=== PATIENT | female | born 1960 | race Caucasian/White ===

== ENCOUNTER → 2016-09-11 | Outpatient (CLI) | payer BC, OTHER ==
[~2016-09-11] MED LIST: CALCTAB28 PO; IBUP200T2 PO; IBUP600T26 PO; IRONTAB3 PO; MULTTAB4 PO; NYAM10003 EXT; SUDATAB15 PO; VICO5TAB PO
--- NOTE | 2016-09-11 12:21 | REPMRS ---
Patient History The patient states she had a clinical breast exam in 09/11 Patient is postmenopausal. Family history of prostate cancer in father at age 50 or over and breast cancer in mother at age 50 or over. Benign excisional biopsy of the left breast, 1985. Taking estrogen for 2 years 1 month. Digital Woman Screen Mammo: September 11, 2016 - Exam #: [id number] Bilateral CC and MLO view(s) were taken. Technologist: Miladys Mason, Technologist Prior study comparison: September 07, 2015, digital woman screen mammo performed at [facility]. August 23, 2014, digital woman screen mammo performed at [facility]. August 18, 2013, digital woman screen mammo performed at [facility]. FINDINGS: There are scattered fibroglandular densities. There is a moderate amount of residual fibroglandular tissue which is fairly symmetric. There is no interval development of dominant mass, architectural distortion, or clustered microcalcification typical of malignancy. There has been no change in the appearance of the mammogram from the prior studies. ASSESSMENT: BI-RADS/ACR category 1 mammogram. Negative. Recommendation Routine screening mammogram of both breasts in 1 year (for women over age 40). This mammogram was interpreted with the aid of an FDA-approved computer-aided dectection system. Electronically Signed By: John Fabian MD 09/11/16 [id number]
== END ==
LOC: M WHC 11:23
PROVIDERS: ATTEND Nurse Practitioner Family
DX: Z12.31 Encounter for screening mammogram for malignant neoplasm of breast (principal)

== ENCOUNTER → 2017-01-28 | Outpatient (REF) | payer OTHER ==
[2017-01-28 11:46] LABS: ALBUMIN 3.6 GM/DL (3.2-5.2); ALBUMIN/GLOBULIN RATIO 1.06 (1.00-1.93); ALKALINE PHOSPHATASE 53 U/L (45-117); ALT/SGPT 22 U/L (12-78); ANION GAP 4 MEQ/L (8-16); AST/SGOT 15 U/L (15-37); BILIRUBIN,TOTAL 0.6 MG/DL (0.2-1.0); BLOOD UREA NITROGEN 22 MG/DL (7-18); CALCIUM LEVEL 8.9 MG/DL (8.5-10.1); CARBON DIOXIDE LEVEL 32 MEQ/L (21-32); CHLORIDE LEVEL 105 MEQ/L (98-107); CHOLESTEROL LEVEL 194 MG/DL (<200); CREATININE FOR GFR 0.88 MG/DL (0.55-1.02); GLOMERULAR FILTRATION RATE > 60.0 (>51); GLUCOSE, FASTING 78 MG/DL (70-105); POTASSIUM SERUM 4.1 MEQ/L (3.5-5.1); SODIUM LEVEL 141 MEQ/L (136-145); TRIGLYCERIDES LEVEL 56 MG/DL (<150)
== END ==
LOC: M SFHCPLAZ 08:07
PROVIDERS: ATTEND Nurse Practitioner Family
DX: I10 Essential (primary) hypertension (principal); E78.00 Pure hypercholesterolemia, unspecified; E55.9 Vitamin D deficiency, unspecified

== ENCOUNTER 2017-06-05 11:10 | Day surgery (SDC) | payer BC, OTHER ==
[~2017-06-05] VITALS: Ht 160 cm; Wt 57.6 kg
[~2017-06-05 11:10] MED LIST changes: +ACETAMINOPHEN 325 MG TAB PO PRN; +BSS with VANC/TOB/EPI for EYE CASES IR ONE; +CYCLOPENTOLATE 2% OPHTH SOLN 2ML BTL OD ONE; +ESTR1CRE TOP; +FISH1000 PO; +LIDOCAINE 3.5 % 1ML OPHTH TOPICAL GEL OU ONE; +MIDAZOLAM INJ 2 MG/2 ML VIAL (J2250) As Ordered ONE; +MULT1CHW39 PO; +OFLOXACIN 0.3 % (OCUFLOX) OPTH SOL 5ML OD ONE; +PHENYLEPHRINE 2.5% OPHTH SOL 2ML OD ONE; +PROPARACAINE 0.5% OPHTH SOL 15ML OD PRN; +TROPICAMIDE 1% OPHTH SOLN 2ML OD ONE; +fentaNYL 100 MCG/2 ML INJECTION (J3010) As Ordered ONE
[2017-06-05] MEDS ORDERED: LR 500 ML IV ONE (11:30)
[2017-06-05] MEDS ORDERED: LIDOCAINE 1% MDV 20ML VIAL SC ONE (11:30)
[2017-06-05] MEDS ORDERED: TRIAMCINOLONE PRES FR 40 MG/ML 1ML(TRIESENCE)(OR EYE ONLY)(J3300 PER 1MG) As Ordered ONE (13:16)
[2017-06-05] MEDS ORDERED: HEALON DUET (HEALON 10MG/ML 0.55ML & HEALON ENDOCOAT 30MG/ML 0.85ML) As Ordered ONE (13:16)
[2017-06-05] MEDS ORDERED: LIDOCAINE 1% SDV 5 ML VIAL As Ordered ONE (13:16)
[2017-06-05] MEDS ORDERED: MOXIFLOXACIN IN BSS 0.25MG/0.25ML INTRACAMERAL INJ (OR EYE ONLY)(J2280) As Ordered ONE (13:16)
[2017-06-05] MEDS ORDERED: POVIDONE-IODINE 5% OPHTH PREP SOL 30ML As Ordered ONE (13:16)
[2017-06-05] MEDS ORDERED: AcetaZOLAMIDE 500 MG ER CAP As Ordered ONE (14:05)
[2017-06-05 14:10] VITALS: BP 115/74
[2017-06-05] MEDS ORDERED: TRIMETHOBENZAMIDE 300 MG CAP PO PRN (14:30)
[2017-06-05] MEDS ORDERED: AcetaZOLAMIDE 500 MG ER CAP PO ONE (14:30)
[2017-06-05] MEDS ORDERED: KETOROLAC 0.5% OPHTH SOLN OD ONE (14:30)
--- NOTE | 2017-06-05 23:05 | RO ---
DATE OF PROCEDURE: 06/05/2017 PREPROCEDURE DIAGNOSIS: Cataract of right eye. POSTPROCEDURE DIAGNOSIS: Cataract of right eye. PROCEDURE: Femtosecond laser and phacoemulsification of the intraocular lens with lens implantation of right eye. Intraocular lens used was Hoya, Model 250, power 18.5 diopter. SURGEON: Myah Bradshaw MD OPERATIONS ANALYST: None. ANESTHESIA: Local IV standby. FINDINGS: Cataract of right eye. COMPLICATIONS: None. DESCRIPTION OF PROCEDURE: The patient was brought to the operating room and laid in supine position. A lid speculum was placed, and patient was brought under the femtosecond laser. After the satisfactory placement of the patient interface, primary incision, secondary incision, and arcuate incisions with lens fragmentation was done without any complication per plan. The patients interface was then removed and lid speculum removed. Patient was placed under the microscope. The eye was prepped and draped in a sterile fashion for ophthalmic surgery. Lid speculum was placed. The secondary incision was opened, and EndoCoat was injected into the anterior chamber. The temporal clear corneal incision was then opened and capsulorrhexis removed, followed by hydrodissection. This was followed by phacoemulsification of the lens within the capsular bag. Cortical material was then aspirated, and Healon was injected into the capsular bag. Intraocular lens was then placed. Excess Healon was aspirated. Wound was hydrated. The lid speculum was removed, and patient was returned to the recovery room in stable condition.
[2017-06-27] MEDS ORDERED: VIAC8.5C PO (09:37)
== END 2017-06-05 14:30 | disposition home or self-care (01) ==
LOC: M SDC 11:10
PROVIDERS: ATTEND Ophthalmology
DX: H25.9 Unspecified age-related cataract (principal)
CPT/HCPCS: 66984; J2250; J2280; J3010; J3300

== ENCOUNTER → 2017-09-12 | Outpatient (CLI) | payer BC | LOC: M WHC 11:20 | DX: Z12.31 Encounter for screening mammogram for malignant neoplasm of breast (principal) | CPT/HCPCS: 77067 ==

== ENCOUNTER → 2017-11-25 | Outpatient (REF) | payer OTHER, BC ==
[2017-11-25 11:31] LABS: BASO % 0.5 % (0.0-1.0); EOS # 0.1 10^3/uL (0.0-0.50); HEMATOCRIT 36.8 % (36.0-47.0); HEMOGLOBIN 12.7 g/dl (12.0-15.5); IMMATURE GRANULOCYTE % 0.3 % (0-3.0); LYMPH # 1.6 10^3/uL (1.5-4.5); MEAN CORPUSCULAR HEMOGLOBIN 31.2 pg (27.0-33.0); MEAN CORPUSCULAR HGB CONC 34.5 g/dl (32.0-36.5); MEAN CORPUSCULAR VOLUME 90.4 fl (80.0-96.0); MONO # 0.3 10^3/uL (0.0-0.8); MONO % 6.8 % (0.0-5.0); NEUTROPHILS % 50.4 % (36.0-66.0); PLATELET COUNT, AUTOMATED 250 10^3/uL (150-450); RED BLOOD COUNT 4.07 10^6/uL (4.00-5.40); RED CELL DISTRIBUTION WIDTH 11.7 % (11.5-14.5)
[2017-11-25 11:57] LABS: ALBUMIN 3.7 GM/DL (3.2-5.2); ALBUMIN/GLOBULIN RATIO 1.03 (1.00-1.93); ALKALINE PHOSPHATASE 59 U/L (45-117); ALT/SGPT 20 U/L (12-78); ANION GAP 6 MEQ/L (8-16); AST/SGOT 17 U/L (7-37); BILIRUBIN,DIRECT 0.1 MG/DL (0.0-0.2); BILIRUBIN,TOTAL 0.5 MG/DL (0.2-1.0); BLOOD UREA NITROGEN 16 MG/DL (7-18); CALCIUM LEVEL 8.8 MG/DL (8.5-10.1); CARBON DIOXIDE LEVEL 29 MEQ/L (21-32); CHLORIDE LEVEL 107 MEQ/L (98-107); GLOMERULAR FILTRATION RATE > 60.0 (>51); GLUCOSE, FASTING 110 MG/DL (70-100); PHOSPHORUS LEVEL 3.6 MG/DL (2.5-4.9); POTASSIUM SERUM 3.6 MEQ/L (3.5-5.1); SODIUM LEVEL 142 MEQ/L (136-145); TOTAL PROTEIN 7.3 GM/DL (6.4-8.2)
== END ==
LOC: M LABDRAW1 10:26
DX: M79.641 Pain in right hand (principal)

== ENCOUNTER → 2018-01-28 | Outpatient (REF) | payer OTHER ==
[2018-01-28 10:26] LABS: HEMATOCRIT 40.4 % (36.0-47.0); HEMOGLOBIN 13.7 g/dl (12.0-15.5); MEAN CORPUSCULAR HEMOGLOBIN 31.2 pg (27.0-33.0); MEAN CORPUSCULAR HGB CONC 33.9 g/dl (32.0-36.5); PLATELET COUNT, AUTOMATED 254 10^3/uL (150-450); RED BLOOD COUNT 4.39 10^6/uL (4.00-5.40); RED CELL DISTRIBUTION WIDTH 11.8 % (11.5-14.5); WHITE BLOOD COUNT 5.5 10^3/uL (4.0-10.0)
[2018-01-28 10:59] LABS: ALBUMIN 3.8 GM/DL (3.2-5.2); ALBUMIN/GLOBULIN RATIO 1.03 (1.00-1.93); ALKALINE PHOSPHATASE 60 U/L (45-117); ALT/SGPT 26 U/L (12-78); ANION GAP 6 MEQ/L (8-16); AST/SGOT 14 U/L (7-37); BILIRUBIN,TOTAL 0.4 MG/DL (0.2-1.0); BLOOD UREA NITROGEN 21 MG/DL (7-18); CARBON DIOXIDE LEVEL 30 MEQ/L (21-32); CHLORIDE LEVEL 107 MEQ/L (98-107); CHOLESTEROL LEVEL 205 MG/DL (<200); CHOLESTEROL RISK RATIO 2.887 (<5); CREATININE FOR GFR 0.92 MG/DL (0.55-1.30); GLOMERULAR FILTRATION RATE > 60.0 (>51); GLUCOSE, FASTING 85 MG/DL (70-100); HDL CHOLESTEROL 71 MG/DL (>40); LDL CHOLESTEROL 120.8 MG/DL (<100); NON-HDL-C 134 MG/DL; POTASSIUM SERUM 4.7 MEQ/L (3.5-5.1); SODIUM LEVEL 143 MEQ/L (136-145); TOTAL PROTEIN 7.5 GM/DL (6.4-8.2); TRIGLYCERIDES LEVEL 66 MG/DL (<150)
== END ==
LOC: M SFHCPLAZ 08:02
DX: J30.9 Allergic rhinitis, unspecified (principal); I10 Essential (primary) hypertension; E78.2 Mixed hyperlipidemia

== ENCOUNTER → 2018-09-16 | Outpatient (CLI) | payer BC ==
[~2018-09-16] MED LIST changes: -ACETAMINOPHEN 325 MG TAB PO PRN; -BSS with VANC/TOB/EPI for EYE CASES IR ONE; -CYCLOPENTOLATE 2% OPHTH SOLN 2ML BTL OD ONE; -LIDOCAINE 3.5 % 1ML OPHTH TOPICAL GEL OU ONE; -MIDAZOLAM INJ 2 MG/2 ML VIAL (J2250) As Ordered ONE; -OFLOXACIN 0.3 % (OCUFLOX) OPTH SOL 5ML OD ONE; -PHENYLEPHRINE 2.5% OPHTH SOL 2ML OD ONE; -PROPARACAINE 0.5% OPHTH SOL 15ML OD PRN; -TROPICAMIDE 1% OPHTH SOLN 2ML OD ONE; +VIAC8.5C PO; -fentaNYL 100 MCG/2 ML INJECTION (J3010) As Ordered ONE
--- NOTE | 2018-09-16 16:23 | REPMRS ---
Patient History The patient states she had a clinical breast exam in 08/2018. Patient is postmenopausal. Family history of breast cancer at age 50 or over in mother, prostate cancer at age 50 or over in father. Benign excisional biopsy of the left breast, 1985. Taking estrogen for 4 years 1 month. Digital Woman Screen Mammo: September 16, 2018 - Exam #: [id number] Bilateral CC and MLO view(s) were taken. Technologist: Simin Espinoza, Technologist Prior study comparison: September 12, 2017, digital woman screen mammo performed at [facility]. September 11, 2016, digital woman screen mammo performed at [facility]. September 07, 2015, digital woman screen mammo performed at [facility]. FINDINGS: The breast tissue is heterogeneously dense. This may lower the sensitivity of mammography. There is a moderate amount of heterogeneously dense fibroglandular tissue which is fairly symmetric. There is no interval development of dominant mass, architectural distortion, or clustered microcalcification typical of malignancy. There has been no change in the appearance of the mammogram from the prior studies. 3-D tomosynthesis shows no additional findings. Assessment: BI-RADS/ACR category 1 mammogram. Negative Mammogram. Recommendation Routine screening mammogram of both breasts in 1 year (for women over age 40). This patient's Lifetime Breast Cancer RIsk is estimated at 19.4 %. This mammogram was interpreted with the aid of an FDA-approved computer-aided dectection system. Electronically Signed By: John Fabian MD 09/16/18 0971
== END ==
LOC: M WHC 11:52
PROVIDERS: ATTEND Nurse Practitioner Family
DX: Z12.31 Encounter for screening mammogram for malignant neoplasm of breast (principal); Z78.0 Asymptomatic menopausal state; Z80.3 Family history of malignant neoplasm of breast; Z86.018 Personal history of other benign neoplasm; Z92.23 Personal history of estrogen therapy

== ENCOUNTER → 2019-03-02 | Outpatient (REF) | payer OTHER ==
[~2019-03-02] MED LIST changes: -MULT1CHW39 PO; +MULT200T7 PO; +RETA0.5E OU; -VIAC8.5C PO; +VIACTIV 500-5001 CHW PO
[2019-03-02 10:44] LABS: ALBUMIN 3.9 GM/DL (3.2-5.2); ALT/SGPT 36 U/L (12-78); BILIRUBIN,TOTAL 0.5 MG/DL (0.2-1.0); BLOOD UREA NITROGEN 17 MG/DL (7-18); CALCIUM LEVEL 8.4 MG/DL (8.5-10.1); CARBON DIOXIDE LEVEL 28 MEQ/L (21-32); CHLORIDE LEVEL 106 MEQ/L (98-107); CHOLESTEROL LEVEL 223 MG/DL (<200); CHOLESTEROL RISK RATIO 2.686 (<5); CREATININE FOR GFR 0.88 MG/DL (0.55-1.30); GLOMERULAR FILTRATION RATE > 60.0 (>51); GLUCOSE, FASTING 84 MG/DL (70-100); HDL CHOLESTEROL 83 MG/DL (>40); LDL CHOLESTEROL 124 MG/DL (<100); NON-HDL-C 140 MG/DL; SODIUM LEVEL 141 MEQ/L (136-145); TOTAL PROTEIN 7.9 GM/DL (6.4-8.2); TRIGLYCERIDES LEVEL 80 MG/DL (<150)
[2019-03-02 12:12] LABS: TOTAL 25(OH) VITAMIN D 41.9 NG/ML (30.0-100.0)
== END ==
LOC: M SFHCPLAZ 08:28
PROVIDERS: ATTEND Nurse Practitioner Family
DX: I10 Essential (primary) hypertension (principal); E78.2 Mixed hyperlipidemia; E55.9 Vitamin D deficiency, unspecified

== ENCOUNTER 2019-03-17 05:59 | Day surgery (SDC) | payer BC, OTHER ==
[~2019-03-17] VITALS: Ht 162.6 cm; Wt 62.6 kg
[2019-03-17] MEDS ORDERED: CIPROFLOXACIN 0.3% OPHTH OINTMENT As Ordered ONE (06:45)
[2019-03-17] MEDS ORDERED: LIDOCAINE 2% W/EPIN INJ 20ML **PRES FREE As Ordered ONE (06:46)
[2019-03-17] MEDS ORDERED: TETRACAINE 0.5% OPHTH SOLN 4ML As Ordered ONE (06:46)
[2019-03-17] MEDS ORDERED: SODIUM BICARBONATE 8.4% INJ 50MEQ 50 ML VIAL As Ordered ONE (06:46)
[2019-03-17] MEDS ORDERED: POVIDONE-IODINE 5% OPHTH PREP SOL 30ML As Ordered ONE (06:50)
[2019-03-17] MEDS ORDERED: LIDOCAINE 3.5 % 1ML OPHTH TOPICAL GEL OU ONE (07:00)
[2019-03-17] MEDS ORDERED: fentaNYL 100 MCG/2 ML INJECTION (J3010) As Ordered ONE (07:14)
[2019-03-17] MEDS ORDERED: MIDAZOLAM INJ 2 MG/2 ML VIAL (J2250) As Ordered ONE (07:14)
[2019-03-17] MEDS ORDERED: PROPOFOL 200 MG/20 ML VIAL As Ordered ONE (07:39)
[2019-03-17 08:47] VITALS: BP 138/90
--- NOTE | 2019-03-19 08:23 | RO ---
DATE OF PROCEDURE: 03/17/2019 PREOPERATIVE DIAGNOSIS: Ptosis and dermatochalasis both upper lids. POSTOPERATIVE DIAGNOSIS: Ptosis and dermatochalasis both upper lids. PROCEDURE: SURGEON: Myah Bradshaw MD APPLICATIONS DEVELOPMENT CONSULTANT: None. ANESTHESIA: INDICATION: Heavy lids interfering with reading and daily activities, worse towards the end of the day. PROCEDURE IN DETAIL: Patient was brought to the operating room, laid in supine position. The upper face was prepped and draped in a sterile fashion for upper lid surgery, following which both upper lids were marked with a sterile marker along the line of proposed skin incisions. Both upper lids were then infiltrated with 2% lidocaine and 1:100,000 epinephrine. Electrocautery was then used to excise the skin off of the right upper lid followed by deeper dissection to isolate the medial and lateral fat pads, which were then excised. Levator aponeurosis which was dehisced was then identified and reattached using #6-0 nylon sutures. The wound was then closed using #6-0 nylon sutures. Exactly the same procedure was done for the left eye. Excellent results were observed. Ice packs were applied. Ciloxan ointment was placed over the wound incision. The patient was returned to the recovery room where detailed postop instructions were given.
== END 2019-03-17 08:50 | disposition home or self-care (01) ==
LOC: M SDC 05:59
PROVIDERS: ATTEND Ophthalmology
DX: H02.834 Dermatochalasis of left upper eyelid (principal); H02.831 Dermatochalasis of right upper eyelid; H02.403 Unspecified ptosis of bilateral eyelids; I10 Essential (primary) hypertension; E78.00 Pure hypercholesterolemia, unspecified; M12.9 Arthropathy, unspecified; R06.83 Snoring; Z88.1 Allergy status to other antibiotic agents; Z88.6 Allergy status to analgesic agent; Z88.8 Allergy status to other drugs, medicaments and biological substances; Z91.09 Other allergy status, other than to drugs and biological substances; Z90.710 Acquired absence of both cervix and uterus; Z96.1 Presence of intraocular lens; Z98.41 Cataract extraction status, right eye; Z98.42 Cataract extraction status, left eye
CPT/HCPCS: 15823; 88302; J2250; J3010

== ENCOUNTER 2019-06-09 15:41 | Emergency (ER) | payer BC, OTHER ==
[~2019-06-09] VITALS: Ht 162.6 cm; Wt 68.0 kg
[2019-06-09] MEDS ORDERED: IBUP-1114 PO (16:18)
[2019-06-09] MEDS ORDERED: ESTR0.1C5 TOP (16:18)
--- NOTE | 2019-06-09 17:22 | REPVR ---
PROCEDURE INFORMATION: Exam: US Duplex Right Lower Extremity Veins, Limited Exam date and time: 06/09/2019 5:07 PM Clinical history: 58 years old, female; Pain; Leg, lower; Right; Additional info: Pain in right leg/calf TECHNIQUE: Imaging protocol: Real-time Duplex ultrasound of the Right Lower Extremity with 2-D danielson scale, color Doppler flow and spectral waveform analysis with image documentation. Limited exam was focused on the right lower extremity veins. COMPARISON: No relevant prior studies available. FINDINGS: Right deep veins: The common femoral, femoral, proximal profunda femoral, popliteal and posterior tibial veins are patent. Normal Doppler waveforms. Normal compressibility and/or augmentation response. There is a linear echogenic focus in the popliteal vein, possibly reflecting sequelae of remote thrombus. Right superficial veins: Unremarkable. Saphenofemoral junction is patent without thrombus. Soft tissues: Unremarkable. IMPRESSION: 1. No sonographic No evidence of deep vein thrombosis. 2. Linear echogenic focus in the popliteal vein, possibly reflecting sequelae of remote thrombus. Electronically signed by: Bharat Hughes On 06/09/2019 17:22:25 PM
[2019-06-09 18:38] VITALS: BP 146/95
== END 2019-06-09 18:40 | disposition home or self-care (01) ==
LOC: M ED 15:41
DX: S86.011A Strain of right Achilles tendon, initial encounter (principal); X50.9XXA Other and unspecified overexertion or strenuous movements or postures, initial encounter; Z86.79 Personal history of other diseases of the circulatory system; Z88.1 Allergy status to other antibiotic agents; Z88.6 Allergy status to analgesic agent; Z88.8 Allergy status to other drugs, medicaments and biological substances; Z79.899 Other long term (current) drug therapy

== ENCOUNTER → 2019-06-22 | Outpatient (CLI) | payer BC, OTHER ==
[~2019-06-22] MED LIST changes: +ESTR0.1C5 TOP; +IBUP-1114 PO
--- NOTE | 2019-06-22 10:26 | REP ---
MRI RIGHT HIP: TECHNIQUE: Coronal T1, STIR through the pelvis, T2 fat sat, right hip all three planes, axial oblique proton density fat sat right hip. Visualized osseous structures demonstrate normal marrow signal with no bone marrow edema or occult fracture. There is no evidence of avascular necrosis. Tiny subcortical cystic changes seen in the greater trochanter of the proximal right femur. There is some very mild ill-defined high signal in the adjacent tendinous structures. Findings suggest very mild greater trochanteric tendinobursitis. There is no evidence of a labral tear. No paralabral cyst is seen. There is a normal amount of joint fluid. Other surrounding soft tissue structures are unremarkable. No abnormality is seen in the visualized pelvis. IMPRESSION: No occult fracture or labral tear. There are findings suggesting very mild right sided greater trochanteric tendinobursitis. Electronically Signed by Dwight Nunes MD 06/22/2019 03:40 P
== END ==
LOC: M RAD 06:49
PROVIDERS: ATTEND Orthopaedic Surgery
DX: S76.311D Strain of muscle, fascia and tendon of the posterior muscle group at thigh level, right thigh, subsequent encounter (principal); M16.11 Unilateral primary osteoarthritis, right hip; X58.XXXA Exposure to other specified factors, initial encounter

== ENCOUNTER → 2019-07-10 | Outpatient (CLI) | payer BC, OTHER ==
--- NOTE | 2019-07-13 09:23 | REP ---
MRI lumbar spine: 07/10/2019. Indication: Lumbar radiculopathy. Comparison: None. Technique: Multiplanar short and long TR sequences of the lumbar spine were obtained without IV Gadolinium. Findings: There is minimal retrolisthesis of L2 on L3 and L3 on L4. Disc desiccation and disc space narrowing are present throughout. No worrisome marrow signal is present. The visualized cord is normal. No significant paraspinal soft tissue abnormalities are present. L1/L2: There is no disc herniation or significant spinal canal / neural foraminal narrowing. L2/L3, L3/L4 and L4/L5 : Diffuse disc bulge and facet arthropathy are present without significant spinal canal or neural foraminal narrowing. L5/S1: There is a right paracentral disc protrusion which does contact the right S1 nerve root within the lateral recess superimposed on a diffuse disc bulge. The neural foramen are patent. Impression: Right paracentral L5/S1 disc herniation and additional degenerative sequelae as described. Electronically Signed by Beni Benítez DO 07/13/2019 09:15 A
== END ==
LOC: M RAD 16:53
PROVIDERS: ATTEND Orthopaedic Surgery
DX: M51.26 Other intervertebral disc displacement, lumbar region (principal); M51.27 Other intervertebral disc displacement, lumbosacral region; M46.96 Unspecified inflammatory spondylopathy, lumbar region

== ENCOUNTER → 2019-09-25 | Outpatient (REF) | payer OTHER, BC ==
[2019-09-25 19:10] LABS: PLATELET COUNT, AUTOMATED 294 10^3/uL (150-450)
[2019-09-25 19:21] LABS: INR 1.08; PARTIAL THROMBOPLASTIN TIME 29.1 SECONDS (25.0-38.4); PROTHROMBIN TIME 13.7 SECONDS (11.8-14.0)
== END ==
LOC: M LABDRAW1 15:20
PROVIDERS: ATTEND Physician Assistant
DX: Z01.812 Encounter for preprocedural laboratory examination (principal); M47.817 Spondylosis without myelopathy or radiculopathy, lumbosacral region

== ENCOUNTER → 2019-10-01 | Outpatient (CLI) | payer BC, OTHER ==
--- NOTE | 2019-10-01 14:08 | REP ---
BILATERAL SCREENING DIGITAL MAMMOGRAM WITH 3D TOMOSYNTHESIS: There are no palpable abnormalities or other breast complaints. The the patient states she had a clinical breast examination : September,. The Tyrer Cuzick Lifetime Breast Cancer Risk Score is: 19%. Comparison is 08/23/2014. The breasts are heterogeneously dense, which could obscure small masses. There is no dominant mass, micro calcific cluster or architectural distortion that would indicate malignancy. There are no additional findings on 3D tomosynthesiss. There is no change from the prior study. Impression: BIRADS/ACR category 1 mammogram. Negative. Recommendation: Routine annual screening mammography. Because of the increased breast density, annual adjunctive breast MRI in addition to screening mammography is recommended. These can be performed at alternating six month intervals. The the for women with a Tyrer-Cuzick score greater than 20 , adjunctive annual breast MRI in addition to screening mammography is recommended. These can be performed at alternating six month intervals. This mammogram was interpreted with the aid of a FDA approved computer-aided detection system. A. Negative mammogram reports should not delay biopsy if a dominant or clinically suspicious mass is present. B. Not all breast cancers are identified by mammography or tomosynthesis. C. Adenosis and dense breasts may obscure an underlying neoplasm. Patient letter M1 dense breasts. Electronically Signed by Dwight Sanchez MD 10/01/2019 02:00 P
== END ==
LOC: M WHC 12:09
PROVIDERS: ATTEND Nurse Practitioner Family
DX: Z12.12 Encounter for screening for malignant neoplasm of rectum (principal); Z12.31 Encounter for screening mammogram for malignant neoplasm of breast

== ENCOUNTER → 2019-10-20 | Outpatient (CLI) | payer BC, OTHER ==
[2019-10-20 18:16] LABS: BLOOD UREA NITROGEN 18 MG/DL (7-18); CALCIUM LEVEL 9.5 MG/DL (8.5-10.1); CARBON DIOXIDE LEVEL 32 MEQ/L (21-32); CHLORIDE LEVEL 106 MEQ/L (98-107); CREATININE FOR GFR 0.94 MG/DL (0.55-1.30); GLOMERULAR FILTRATION RATE > 60.0 (>51); GLUCOSE, FASTING 89 MG/DL (70-100); SODIUM LEVEL 141 MEQ/L (136-145)
== END ==
LOC: M PLALAB 12:48
PROVIDERS: ATTEND Nurse Practitioner Family
DX: I10 Essential (primary) hypertension (principal)

== ENCOUNTER → 2019-10-30 | Outpatient (CLI) | payer BC, OTHER ==
[2019-10-30 15:51] LABS: FREE T4 1.13 NG/DL (0.76-1.46); FREE THYROXINE INDEX 3.2 % (1.3-4.8); THYROID STIMULATING HORMONE 1.52 uIU/ML (0.358-3.740); THYROXINE (T4) 11.3 UG/DL (4.5-12.0)
[2019-10-30 15:53] LABS: TOTAL T3 122.1 NG/DL (60.0-181.0)
[2019-11-02 14:10] LABS: SSA SJOGRENS A <0.2 AI (0.0-0.9); SSB SJOGRENS B <0.2 AI (0.0-0.9)
== END ==
LOC: M PLALAB 12:26
PROVIDERS: ATTEND Ophthalmology
DX: H05.20 Unspecified exophthalmos (principal)

== ENCOUNTER → 2019-12-23 | Outpatient (CLI) | payer BC, OTHER ==
[~2019-12-23] MED LIST changes: +BUDE8.43 NS; +ESTR1CRE VA; +GABA-1171 PO; +LOSA50TA88 PO; +NYST1POW9 TOP; +PERC5TAB12 PO; +VIAC1CHW PO
--- NOTE | 2019-12-24 19:27 | ECGEPIP ---
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
== END ==
LOC: M EKG 15:23
PROVIDERS: ATTEND Anesthesiology
DX: Z01.818 Encounter for other preprocedural examination (principal); R03.0 Elevated blood-pressure reading, without diagnosis of hypertension; E78.00 Pure hypercholesterolemia, unspecified

== ENCOUNTER → 2019-12-25 | Outpatient (CLI) | payer BC, OTHER | LOC: M LABSMTC 10:40 | PROVIDERS: ATTEND Anesthesiology | DX: Z11.59 Encounter for screening for other viral diseases (principal) ==

== ENCOUNTER 2019-12-28 09:32 | Day surgery (SDC) | payer BC, OTHER ==
[~2019-12-28] VITALS: Ht 162.6 cm; Wt 77.0 kg
[~2019-12-28 09:32] MED LIST changes: +GABAPENTIN 300 MG CAP PO ONE; +LR 1,000 ML IV ONE; -PERC5TAB12 PO; +PERCOCET 5MG/325MG TAB PO ONE; +ceFAZolin SOD 2 GM in IV 1 EA IV ONE
[2019-12-28] MEDS ORDERED: CelecoXIB 400 MG CAP PO ONE (11:00)
[2019-12-28] MEDS ORDERED: fentaNYL 250 MCG/5 ML INJECTION (J3010) As Ordered ONE (11:00)
[2019-12-28] MEDS ORDERED: propofoL 200 MG/20 ML VIAL As Ordered ONE (11:00)
[2019-12-28] MEDS ORDERED: MIDAZOLAM INJ 2MG/2ML VIAL (J2250 PER 1MG) As Ordered ONE (11:00)
[2019-12-28] MEDS ORDERED: LIDOCAINE 2% 100MG/5ML SDV (FOR ANES.) As Ordered ONE (11:01)
[2019-12-28] MEDS ORDERED: ONDANSETRON 4MG/2ML VIAL As Ordered ONE (11:01)
[2019-12-28] MEDS ORDERED: ROCURONIUM BROMIDE 50 MG/5 ML VIAL As Ordered ONE (11:01)
[2019-12-28] MEDS ORDERED: dexameTHASONE 4 MG/ML 1ML VIAL (J1100 PER 1MG) As Ordered ONE (11:01)
[2019-12-28] MEDS ORDERED: ePHEDrine SULFATE 25 MG/5 ML(5MG/ML) SYRINGE As Ordered ONE ×2 (11:48→14:21)
[2019-12-28] MEDS ORDERED: BUPIVACAINE/EPIN 0.25% 30 ML VIAL As Ordered ONE (13:36)
[2019-12-28] MEDS ORDERED: THROMBIN SOLN 20,000 UNITS KIT As Ordered ONE (13:36)
[2019-12-28] MEDS ORDERED: BUPIVACAINE HCL 0.25% 10ML VIAL As Ordered ONE (13:36)
[2019-12-28] MEDS ORDERED: BUPIVACAINE LIPOSOME/PF 1.3% 20ML VIAL (13.3MG/ML)(EXPAREL)(C9290 PER1MG) As Ordered ONE (13:36)
[2019-12-28] MEDS ORDERED: BACITRACIN PWD 50,000 UNITS VIAL As Ordered ONE (13:37)
[2019-12-28] MEDS ORDERED: ACETAMINOPHEN 1000MG 100ML IV BTL (OFIRMEV) (J0131 PER 10MG) As Ordered ONE (14:20)
[2019-12-28] MEDS ORDERED: PHENYLEPHRINE 10MG/ML 1ML VIAL (J2370 PER 1) As Ordered ONE (14:32)
[2019-12-28] MEDS ORDERED: PHENYLephrine HCL 500 MCG/5 ML (100MCG/ML) SYRINGE (J2370) As Ordered ONE (14:39)
[2019-12-28] MEDS ORDERED: HYDROmorphone HCL 2 MG/ML 1ML VIAL (J1170) As Ordered ONE (15:02)
[2019-12-28] MEDS ORDERED: SUGAMMADEX SODIUM 500 MG/5 ML VIAL (BRIDION) As Ordered ONE (15:08)
--- NOTE | 2019-12-28 15:18 | REP ---
SINGLE VIEW LUMBOSACRAL SPINE: Single portable lateral view of the lumbosacral is performed. A posterior metallic probe is seen. The tip is at the L5-S1 level overlying the posterior facet joints. Vertebral bodies are normal in height and well aligned. There is mild spurring of the L3 and L4 vertebral bodies. Electronically Signed by Dwight Nunes MD 12/28/2019 04:01 P
[2019-12-28] MEDS ORDERED: HYDROMORPHONE HCL 0.5 MG/ 0.5 ML SYRINGE (J1170 PER 1) IV PRN (16:00)
[2019-12-28] MEDS ORDERED: PERCOCET 5MG/325MG TAB PO PRN ×2 (16:00)
[2019-12-28] MEDS ORDERED: MORPHINE 2 MG/ML 1ML VIAL (J2270) IV PRN (16:15)
[2019-12-28] MEDS ORDERED: ONDANSETRON 4MG/2ML VIAL IV PRN (16:15)
[2019-12-28] MEDS ORDERED: fentaNYL 100 MCG/2 ML INJECTION (J3010) IV PRN (16:15)
[2019-12-28] MEDS ORDERED: PROMETHAZINE INJ 25 MG/ML VIAL (J2550) IV PRN (16:15)
[2019-12-28] MEDS ORDERED: oxyCODONE 5MG TAB PO PRN (16:15)
[2019-12-28] MEDS ORDERED: LR 1,000 ML IV SCH ×2 (16:15→18:30)
[2019-12-28 17:45] VITALS: BP 120/76
[2019-12-28 18:15] VITALS: BP 107/70
[2019-12-28 19:15] VITALS: BP 108/72
[2019-12-28 20:15] VITALS: BP 112/68
[2019-12-28] MEDS: GABAPENTIN 100 MG CAP PO SCH (21:11)
[2019-12-28] MEDS: METAMUCIL (PSYLLIUM) PACKET PO SCH (21:11)
[2019-12-28 21:34] VITALS: BP 111/73
[2019-12-28 22:21] VITALS: BP 115/74
[2019-12-29 02:15] VITALS: BP 121/65
[2019-12-29 05:06] VITALS: BP 114/74
[2019-12-29] MEDS ORDERED: CelecoXIB (CeleBREX) 100 MG CAP PO ONE (08:15)
[2019-12-29] MEDS: GABAPENTIN 100 MG CAP PO SCH (08:37)
[2019-12-29] MEDS: METAMUCIL (PSYLLIUM) PACKET PO SCH (08:37)
[2019-12-29] MEDS ORDERED: PERC5TAB12 PO (08:47)
[2019-12-29] MEDS ORDERED: estradioL 1 MG TAB PO SCH (09:00)
--- NOTE | 2019-12-31 12:37 | RO ---
DATE OF PROCEDURE: 12/28/2019 PREOPERATIVE DIAGNOSIS: Right sided disc herniation at L5-S1 producing right lower extremity radiculopathy. POSTOPERATIVE DIAGNOSIS: Right sided disc herniation at L5-S1 producing right lower extremity radiculopathy. PROCEDURE PERFORMED: Right L5-S1 microdiscectomy. SURGEON: Dr Lukasz Guido. VISITOR SERVICES ASSISTANT: GRACIELA Alberto. ANESTHESIA: General. ESTIMATED BLOOD LOSS: Less than 40 mL. FLUIDS REPLACED: Crystalloid. COMPLICATIONS: No complications. INDICATIONS: Disc herniation L5-S1 right side with a corresponding right lower extremity radicular complaints. Consent reviewed in detail with the patient including kwaku discussion of pathology involved, procedure proposed, alternatives including doing nothing and risks including not limited to pain, failure, infection, bleeding blood loss, incomplete relief symptoms need for additional surgery and other issues. The patient agrees to proceed. DESCRIPTION OF PROCEDURE: Identified in the holding area, site side verified, brought to the operating room. Once anesthesia was administered, position on the Dawson table in the prone position for exposure of the lumbar spine. Sterilely prepped, draped usual fashion. Next, Mr. Thorne stood on the patient's left side. He infiltrated line of the incision with 0.25% Marcaine with epinephrine. I stood on the patient's right side. I made the incision using a 10-blade knife developed down through skin and subcuticular tissues to the posterior lumbar fascia. Posterior lumbar fascia was sharply divided off the spinous processes of L5 and S1 and then I dissected along the spinous process using the Bovie cautery down the lamina of 5. I drilled the posterior lamina of 5 with a divot, placed a Pérez-Clive probe and got a cross-table lateral x-ray to verify our level. Once this was accomplished, dissection further extended over the S1 lamina. Retractor was placed. The operating microscope was draped and brought in for additional portion of the procedure. I looked through oculars on the patient's right side, Mr. Thorne on the left side so that he function of the sampler first, used suction and levels and other tools. Next, posterior lamina of 5 removed using Michelle found by use of the high-speed bur to implement a right unilateral laminotomy of L5 extending superiorly the bare area of 5 inferiorly, the bare area of S1, protecting the facet complex. Elevated the posterior longitudinal ligament. Removed it using Kerrisons. I then carefully dissected and swept the traversing S1 nerve root off the bulging disc osteophyte complex. I created a rent in the posterior annulus and removed some hardened extruded disc material as well as some friable extruded disc material. Next, I verified the root was significantly decompressed. We verified there was no additional retrievable fragments. I probed the neural foramina, there was no foraminal stenosis. I irrigated using saline solution. Retractors were then inspected for bleeding, no active bleeding. Retractors were then removed. Posterior lumbar fascia reapproximated. The deep dermis reapproximated. Pernio dressing applied. The patient moved to the supine position on hospital bed extubated, moved to recovery room in good condition. For further details please refer to the medical record.
== END 2019-12-29 10:55 | disposition home or self-care (01) ==
LOC: M SDC 09:32 → M MS5PR 17:37 → M SDC 12-29 10:55
PROVIDERS: ATTEND Orthopaedic Surgery
DX: M51.27 Other intervertebral disc displacement, lumbosacral region (principal); I10 Essential (primary) hypertension; E78.5 Hyperlipidemia, unspecified; Z88.8 Allergy status to other drugs, medicaments and biological substances; Z91.038 Other insect allergy status; Z79.899 Other long term (current) drug therapy
CPT/HCPCS: 63030; 72100; 86850; 86900; 86901; 88304; C9290; J0131; J0690; J1100; J1170; J2250; J2370; J2405; J3010

== ENCOUNTER → 2020-01-15 | Outpatient (REF) | payer OTHER ==
[~2020-01-15] MED LIST changes: -GABAPENTIN 300 MG CAP PO ONE; -LR 1,000 ML IV ONE; +PERC5TAB12 PO; -PERCOCET 5MG/325MG TAB PO ONE; -ceFAZolin SOD 2 GM in IV 1 EA IV ONE
[2020-01-15 12:30] LABS: ALBUMIN 3.5 GM/DL (3.2-5.2); ALT/SGPT 30 U/L (12-78); BILIRUBIN,TOTAL 0.4 MG/DL (0.2-1.0); BLOOD UREA NITROGEN 21 MG/DL (7-18); CALCIUM LEVEL 9.1 MG/DL (8.5-10.1); CARBON DIOXIDE LEVEL 29 MEQ/L (21-32); CHLORIDE LEVEL 106 MEQ/L (98-107); CHOLESTEROL LEVEL 218 MG/DL (<200); CHOLESTEROL RISK RATIO 3.824 (<5); CREATININE FOR GFR 0.88 MG/DL (0.55-1.30); GLOMERULAR FILTRATION RATE > 60.0 (>51); GLUCOSE, FASTING 84 MG/DL (70-100); HDL CHOLESTEROL 57 MG/DL (>40); LDL CHOLESTEROL 143 MG/DL (<100); NON-HDL-C 161 MG/DL; POTASSIUM SERUM 4.2 MEQ/L (3.5-5.1); SODIUM LEVEL 141 MEQ/L (136-145); TOTAL PROTEIN 7.2 GM/DL (6.4-8.2); TRIGLYCERIDES LEVEL 88 MG/DL (<150)
[2020-01-15 14:02] LABS: MALB URINE SIEMENS 6.7 MG/L; MAU/CREAT RATIO 4.7 MCG/MG (0.0-30.0)
== END ==
LOC: M PLALAB 09:16
PROVIDERS: ATTEND Nurse Practitioner Family
DX: I10 Essential (primary) hypertension (principal); E78.2 Mixed hyperlipidemia

== ENCOUNTER → 2020-03-12 | Outpatient (CLI) | payer BC, OTHER ==
--- NOTE | 2020-05-09 09:01 | SLEEPCENT ---
DATE: 03/12/2020 ORDERED BY: MAX Timmons Nocturnal polysomnography was performed for evaluation of sleep physiology in this patient with a history of snoring and excessive somnolence. Seven hours and 30 minutes of data were reviewed. There were 344.5 minutes of sleep identified. Sleep latency was prolonged at 25 minutes. REM latency was prolonged at 162 minutes. Sleep architecture showed some fragmentation. There were two REM cycles noted. Overall sleep efficiency was 77.3%. The patient's electrocardiogram showed a sinus rhythm with an average heart rate 66 beats per minutes. EEG showed normal waveforms for wake and sleep. There were 180 respiratory events identified of ten seconds in duration or greater for an apnea-hypopnea index of 31.3. The events were primarily obstructive not exclusive to sleep stage nor body posture. Arousals from respiratory events occurred 29.5 times per hour and oxygen desaturations were seen below 90%. Remaining measures of sleep physiology were normal. IMPRESSION: Obstructive sleep apnea syndrome (G47.33), apnea-hypopnea index 31.3. RECOMMENDATIONS: The patient should be encouraged to return to [facility] for [facility]. In the interim, alcohol and sedative avoidance should be practiced and caution exercised during the operation of motor vehicles /TANYA Foster
== END ==
LOC: M SLEEP 20:00
PROVIDERS: ATTEND Nurse Practitioner Family
DX: R06.83 Snoring (principal)

== ENCOUNTER → 2020-04-20 | Outpatient (CLI) | payer BC, OTHER ==
--- NOTE | 2020-05-09 07:29 | SLEEPCENT ---
DATE: 04/20/2020 ORDERED BY: Dr. Arianna Vallejo Nocturnal polysomnography was performed for the titration of pressure therapy in this patient with obstructive sleep apnea syndrome, apnea-hypopnea index 31.3. For testing, patient was fit with a ResMed AirFit F30 full-face mask of small size. There was 4 cm of water pressure applied to the circuit, and the lights were extinguished. There was 7 hours and 53 minutes of data reviewed. There was 341 minutes of sleep identified. Sleep latency was prolonged at 31.5 minutes. REM latency was short at 67 minutes. Sleep architecture was fair with two REM cycles noted. Overall sleep efficiency was 72.9%. The electrocardiogram showed a sinus rhythm with an average heart rate of 64 beats per minute. EEG showed normal waveforms for wake and sleep. Respiratory events were found best palliated with CPAP at a pressure of +8, and remaining measures of sleep physiology were normal. IMPRESSION: Obstructive sleep apnea syndrome (G47.33). RECOMMENDATION: Nightly use of pressure therapy, 8 cm of water. MTDD
== END ==
LOC: M SLEEP 20:00
PROVIDERS: ATTEND Nurse Practitioner Family
DX: G47.33 Obstructive sleep apnea (adult) (pediatric) (principal)

== ENCOUNTER → 2020-10-04 | Outpatient (CLI) | payer BC ==
--- NOTE | 2020-10-04 12:59 | REPMRS ---
Patient History The patient states she had a clinical breast exam in 09/2020 Family history of breast cancer at age 50 or over in mother, prostate cancer at age 50 or over in father. Benign excisional biopsy of the left breast, 1985. Took estrogen for 4 years 1 month. Digital Woman Screen Mammo: October 04, 2020 - Exam #: [id number] Bilateral CC and MLO view(s) were taken. Technologist: Miladys Mason, Technologist Prior study comparison: October 01, 2019, bilateral digital woman screen mammo performed at [facility]. September 16, 2018, bilateral digital woman screen mammo performed at [facility]. September 12, 2017, digital woman screen mammo performed at [facility]. FINDINGS: There are scattered fibroglandular densities. The Volpara volumetric breast density category is:B. There is a nodular opacity in the left breast medially unchanged from the 2018 prior study. There is a 7 mm new nodular density in the inferomedial aspect of the right breast which merits further evaluation. There has been no other change in the appearance of the mammogram from the prior studies. There is a mild amount of scattered fibroglandular density which is fairly symmetric. There is no other interval development of dominant mass, architectural distortion, or grouped microcalcification suggestive of malignancy. 3-D tomosynthesis shows no additional findings. Assessment: BI-RADS/ACR category 0 mammogram, Incomplete: Need additional imaging evaluation and/or prior mammograms for comparison. Recommendation Ultrasound and special view mammogram of the right breast. This patient's [facility] Lifetime Breast Cancer Risk is estimated at 18.5 %. This mammogram was interpreted with the aid of an FDA-approved computer-aided dectection system. Electronically Signed By: John Fabian MD 10/04/20 [id number]
== END ==
LOC: M WHC 12:22
PROVIDERS: ATTEND Nurse Practitioner Family
DX: Z12.31 Encounter for screening mammogram for malignant neoplasm of breast (principal); R92.8 Other abnormal and inconclusive findings on diagnostic imaging of breast; Z80.3 Family history of malignant neoplasm of breast

== ENCOUNTER → 2020-10-17 | Outpatient (CLI) | payer BC ==
--- NOTE | 2020-10-17 16:26 | REP ---
INDICATION: RIGHT BREAST ADDITIONAL VIEWS; R BREAST U/S ADDITIONAL VIEWS. Screening mammography 04 October 2020 was BI-RADS category 0 incomplete due to a new nodular density 7 mm in diameter in the inferomedial aspect of the right breast. Diagnostic imaging was recommended. COMPARISON: October 04, 2020, October 01, 2019, and September 16, 2018. TECHNIQUE: Magnified focal spot-compression CC, true mL, and MLO views of the right breast are obtained. Targeted right breast sonography is carried out. This mammogram was interpreted with the aid of an FDA-approved computer-aided detection system. FINDINGS: Magnified focal spot-compression CC, mL, and MLO views of the right breast confirm the presence of a 6 mm well-circumscribed nodule in the retroareolar region of the right breast slightly below and medial to the plane of the nipple, 5 to 6 o'clock position. Scattered fibroglandular elements are again noted unchanged. The Volpara volumetric breast density pattern is b. Targeted ultrasound: Targeted right breast sonography is carried out in the 5-6 o'clock position. A 0.6 x 0.6 x 0.4 cm simple cyst is observed. Breast parenchyma is otherwise unremarkable sonographically. IMPRESSION: BIRADS/ACR category 2 benign right breast mammographic and sonographic findings. Simple cyst seen in the right breast. This patient's Tyrer-Cuzick lifetime breast cancer risk assessment score is 18.5%. RECOMMENDATION: Repeat screening mammography recommended 1 year (for women over 40). The patient letter being requested is M1. <Electronically signed by John Fabian > 10/17/20 0703
== END ==
LOC: M WHC 10:52
PROVIDERS: ATTEND Nurse Practitioner Family
DX: R92.8 Other abnormal and inconclusive findings on diagnostic imaging of breast (principal); N63.14 Unspecified lump in the right breast, lower inner quadrant

== ENCOUNTER → 2021-03-29 | Outpatient (CLI) | payer BC ==
[2021-03-29 14:18] LABS: ALBUMIN 3.7 GM/DL (3.2-5.2); ALT/SGPT 142 U/L (12-78); BILIRUBIN,TOTAL 0.5 MG/DL (0.2-1.0); BLOOD UREA NITROGEN 16 MG/DL (7-18); CALCIUM LEVEL 9.3 MG/DL (8.8-10.2); CARBON DIOXIDE LEVEL 29 MEQ/L (21-32); CHLORIDE LEVEL 106 MEQ/L (98-107); CHOLESTEROL LEVEL 232 MG/DL (<200); CHOLESTEROL RISK RATIO 3.569 (<5); CREATININE FOR GFR 0.94 MG/DL (0.55-1.30); GLOMERULAR FILTRATION RATE > 60.0 (>45); GLUCOSE, FASTING 90 MG/DL (70-100); HDL CHOLESTEROL 65 MG/DL (>40); LDL CHOLESTEROL 150 MG/DL (<100); NON-HDL-C 167 MG/DL; POTASSIUM SERUM 4.2 MEQ/L (3.5-5.1); SODIUM LEVEL 141 MEQ/L (136-145); TOTAL PROTEIN 7.8 GM/DL (6.4-8.2); TRIGLYCERIDES LEVEL 83 MG/DL (<150)
[2021-03-29 14:26] LABS: MALB URINE SIEMENS 5.5 MG/L; MAU/CREAT RATIO 4.4 MCG/MG (0.0-30.0)
== END ==
LOC: M PLALAB 09:44
PROVIDERS: ATTEND Nurse Practitioner Family
DX: I10 Essential (primary) hypertension (principal)

== ENCOUNTER → 2021-04-18 | Outpatient (CLI) | payer BC, OTHER ==
--- NOTE | 2021-04-18 11:41 | REP ---
INDICATION: OTHER SPECIFIED ABNORMAL FINDINGS OF BLOOD CHEMISTRY. COMPARISON: None. TECHNIQUE: Four views of the 1st digit of the left foot secondary to atraumatic pain FINDINGS: Mild degenerative changes are seen involving the 1st metatarsal-phalangeal joint. There is no evidence of an acute fracture or destructive osseous lesion. IMPRESSION: No evidence of an acute abnormality. <Electronically signed by Lorenzo Callahan > 04/18/21 [id number]
[2021-04-18 14:13] LABS: ALBUMIN 3.5 GM/DL (3.2-5.2); ALT/SGPT 175 U/L (12-78); BILIRUBIN,TOTAL 0.5 MG/DL (0.2-1.0); BLOOD UREA NITROGEN 13 MG/DL (7-18); CALCIUM LEVEL 9.4 MG/DL (8.8-10.2); CARBON DIOXIDE LEVEL 29 MEQ/L (21-32); CHLORIDE LEVEL 108 MEQ/L (98-107); CREATININE FOR GFR 0.94 MG/DL (0.55-1.30); GLOMERULAR FILTRATION RATE > 60.0 (>45); GLUCOSE, FASTING 122 MG/DL (70-100); POTASSIUM SERUM 4.1 MEQ/L (3.5-5.1); SODIUM LEVEL 142 MEQ/L (136-145); TOTAL PROTEIN 7.5 GM/DL (6.4-8.2)
[2021-04-18 14:34] LABS: HEPATITIS B SURFACE ANTIGEN NEGATIVE (NEGATIVE)
[2021-04-18 15:02] LABS: HEPATITIS B CORE ANTIBODY IGM NEGATIVE (NEGATIVE); HEPATITIS C VIRUS ABY INDEX < 0.0 INDEX (<0.8)
[2021-04-18 15:03] LABS: HEPATITIS A ANTIBODY IGM NEGATIVE (NEGATIVE)
== END ==
LOC: M PLAIMG 10:30
PROVIDERS: ATTEND Nurse Practitioner Family
DX: R79.89 Other specified abnormal findings of blood chemistry (principal); M79.675 Pain in left toe(s)

== ENCOUNTER → 2021-05-03 | Outpatient (CLI) | payer BC ==
--- NOTE | 2021-05-03 09:34 | REP ---
INDICATION: R79.89 LFT ELEVATION. COMPARISON: None. TECHNIQUE: Right upper quadrant sonography. FINDINGS: Scanning through the right upper quadrant of the abdomen demonstrates a normal sized, thin-walled gallbladder without evidence polyp. There is a mobile echogenic shadowing focus within the gallbladder lumen consistent with cholelithiasis. Common bile duct is normal measuring 0.3 cm in greatest diameter. No focal liver lesion is seen. Liver size is normal. The liver parenchyma shows slightly increased echogenicity question fatty infiltration. No pancreatic abnormality is observed. No right renal abnormality is seen. There is no evidence of ascites. The right kidney measures 8.6 x 3.5 x 4.5 cm. IMPRESSION: Atrophic right kidney. Cholelithiasis. No evidence of biliary ductal dilation. Probable mild fatty infiltration of the liver. <Electronically signed by John Fabian > 05/03/21 0901
== END ==
LOC: M WHC 07:57
PROVIDERS: ATTEND Nurse Practitioner Family
DX: R79.89 Other specified abnormal findings of blood chemistry (principal)

== ENCOUNTER → 2021-05-15 | Outpatient (CLI) | payer BC, OTHER ==
[~2021-05-15] MED LIST changes: +CLOB60OI5; +SYST1SOL4 OU
[2021-05-15 11:34] LABS: ALBUMIN 3.5 GM/DL (3.2-5.2); BILIRUBIN,DIRECT 0.2 MG/DL (0.0-0.2); BILIRUBIN,TOTAL 0.5 MG/DL (0.2-1.0); TOTAL PROTEIN 7.1 GM/DL (6.4-8.2)
== END ==
LOC: M PLALAB 08:41
PROVIDERS: ATTEND Nurse Practitioner Family
DX: R79.89 Other specified abnormal findings of blood chemistry (principal)

== ENCOUNTER → 2021-05-20 | Outpatient (CLI) | payer BC, OTHER | LOC: M LABSMTC 10:08 | PROVIDERS: ATTEND Anesthesiology | DX: Z01.812 Encounter for preprocedural laboratory examination (principal); Z20.822 Contact with and (suspected) exposure to COVID-19 ==

== ENCOUNTER 2021-05-25 10:11 | Day surgery (SDC) | payer BC, OTHER ==
[~2021-05-25] VITALS: Ht 160 cm; Wt 0.5 kg
[~2021-05-25 10:11] MED LIST changes: +LIDOCAINE 2% 100MG/5ML SDV (FOR ANES.) As Ordered ONE; +NS 1,000 ML IV SCH; +propofoL 200 MG/20 ML VIAL As Ordered ONE
--- NOTE | 2021-05-25 10:55 | ROOR ---
Patient Name: Eloisa Person Procedure Date: 05/25/2021 10:40 AM Date of : 1960 Age: 60 Room: [facility] Gender: Female Note Status: Finalized Procedure: Colonoscopy Indications: Screening for colorectal malignant neoplasm Providers: Dick Abel MD Referring MD: Cyndi Henley NP Requesting Provider: Medicines: Monitored Anesthesia Care Complications: No immediate complications. Procedure: Pre-Anesthesia Assessment: - The heart rate, respiratory rate, oxygen saturations, blood pressure, adequacy of pulmonary ventilation, and response to care were monitored throughout the procedure. The Colonoscope was introduced through the anus and advanced to the terminal ileum, with identification of the appendiceal orifice and IC valve. The colonoscopy was performed without difficulty. The patient tolerated the procedure well. The quality of the bowel preparation was good. Findings: The perianal and digital rectal examinations were normal. Retroflexion in the right colon was performed. The entire examined colon appeared normal on direct and retroflexion views. Impression: - The entire examined colon is normal on direct and retroflexion views. - No specimens collected. Recommendation: - Repeat colonoscopy in 10 years for screening purposes. Procedure Code(s): --- Professional --- 46317, Colonoscopy, flexible; diagnostic, including collection of specimen(s) by brushing or washing, when performed (separate procedure) Diagnosis Code(s): --- Professional --- Z12.11, Encounter for screening for malignant neoplasm of colon CPT copyright 2019 [employer]. All rights reserved. The codes documented in this report are preliminary and upon surgical coder review may be revised to meet current compliance requirements. Dick Abel MD Dick Abel MD 05/25/2021 10:55:09 AM Electronically signed by Dick Abel MD Number of Addenda: 0 Note Initiated On: 05/25/2021 10:40 AM Estimated Blood Loss: Estimated blood loss: none.
[2021-05-25 11:20] VITALS: BP 137/80
== END 2021-05-25 11:35 | disposition home or self-care (01) ==
LOC: M OPP 10:11
PROVIDERS: ATTEND Internal Medicine Gastroenterology
DX: Z12.11 Encounter for screening for malignant neoplasm of colon (principal); I10 Essential (primary) hypertension; E78.5 Hyperlipidemia, unspecified; G47.30 Sleep apnea, unspecified; M19.90 Unspecified osteoarthritis, unspecified site; H04.123 Dry eye syndrome of bilateral lacrimal glands; M25.50 Pain in unspecified joint; Z88.1 Allergy status to other antibiotic agents; Z88.8 Allergy status to other drugs, medicaments and biological substances; Z91.038 Other insect allergy status; Z79.899 Other long term (current) drug therapy; Z80.3 Family history of malignant neoplasm of breast; Z80.42 Family history of malignant neoplasm of prostate; Z82.49 Family history of ischemic heart disease and other diseases of the circulatory system

== ENCOUNTER → 2021-06-06 | Outpatient (CLI) | payer BC, OTHER ==
[~2021-06-06] MED LIST changes: -LIDOCAINE 2% 100MG/5ML SDV (FOR ANES.) As Ordered ONE; -NS 1,000 ML IV SCH; -propofoL 200 MG/20 ML VIAL As Ordered ONE
--- NOTE | 2021-06-06 13:31 | REP ---
INDICATION: NEOPLASM OF UNCERTAIN BEHAVIORS OF SKIN COMPARISON: None. TECHNIQUE: AP, lateral, bilateral oblique views right hand. FINDINGS: Age-related changes are appreciated primarily involving the metacarpophalangeal and interphalangeal joints. No evidence for acute or healed injury. There is focal subchondral cystic change at the 2nd DIP joint consistent with arthritic changes. No obvious significant osseous abnormality. Surrounding soft tissues are unremarkable. IMPRESSION: Generalized age-related arthritic changes most pronounced at the 2nd distal interphalangeal joint. <Electronically signed by Daniel Gonzalez > 06/06/21 [id number]
== END ==
LOC: M RAD 12:18
PROVIDERS: ATTEND Surgery
DX: D48.5 Neoplasm of uncertain behavior of skin (principal)

== ENCOUNTER → 2021-06-13 | Outpatient (CLI) | payer BC, OTHER ==
[2021-06-13 14:55] LABS: ALBUMIN 3.5 GM/DL (3.2-5.2); BILIRUBIN,DIRECT 0.1 MG/DL (0.0-0.2); BILIRUBIN,TOTAL 0.4 MG/DL (0.2-1.0); TOTAL PROTEIN 7.2 GM/DL (6.4-8.2)
== END ==
LOC: M PLALAB 11:41
PROVIDERS: ATTEND Nurse Practitioner Family
DX: R79.89 Other specified abnormal findings of blood chemistry (principal)

== ENCOUNTER → 2021-07-07 | Outpatient (CLI) | payer BC, OTHER ==
[2021-07-07 14:07] LABS: ALBUMIN 3.6 GM/DL (3.2-5.2); BILIRUBIN,DIRECT 0.2 MG/DL (0.0-0.2); BILIRUBIN,TOTAL 0.5 MG/DL (0.2-1.0); TOTAL PROTEIN 7.1 GM/DL (6.4-8.2)
== END ==
LOC: M PLALAB 11:17
PROVIDERS: ATTEND Nurse Practitioner Family
DX: R79.89 Other specified abnormal findings of blood chemistry (principal)

== ENCOUNTER → 2021-07-13 | Outpatient (CLI) | payer BC, OTHER ==
[2021-07-13 15:33] LABS: INR 0.95; PROTHROMBIN TIME 13.1 SECONDS (12.7-14.5)
[2021-07-13 15:34] LABS: PARTIAL THROMBOPLASTIN TIME 30.1 SECONDS (25.9-37.0)
== END ==
LOC: M PLALAB 12:47
PROVIDERS: ATTEND Physician Assistant Medical
DX: R79.89 Other specified abnormal findings of blood chemistry (principal)

== ENCOUNTER → 2021-08-08 | Outpatient (CLI) | payer BC, OTHER ==
--- NOTE | 2021-08-10 00:09 | ECGEPIP ---
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
== END ==
LOC: M EKG 10:51
DX: Z01.810 Encounter for preprocedural cardiovascular examination (principal)

== ENCOUNTER → 2021-10-05 | Outpatient (CLI) | payer BC, OTHER ==
[~2021-10-05] MED LIST changes: +LOSA50TA28 PO; -LOSA50TA88 PO
== END ==
LOC: M WHC 14:03
PROVIDERS: ATTEND Physician Assistant Medical
DX: Z12.31 Encounter for screening mammogram for malignant neoplasm of breast (principal)

== ENCOUNTER → 2021-10-05 | Outpatient (CLI) | payer BC, OTHER | LOC: M PLALAB 13:52 | PROVIDERS: ATTEND Physician Assistant Medical | DX: K76.0 Fatty (change of) liver, not elsewhere classified (principal) ==

== ENCOUNTER → 2021-10-09 | Outpatient (CLI) | payer BC, OTHER | LOC: M RAD 07:48 | PROVIDERS: ATTEND Physician Assistant Medical | DX: K80.20 Calculus of gallbladder without cholecystitis without obstruction (principal) | CPT/HCPCS: 78227; A9537 ==

== ENCOUNTER → 2022-04-02 | Outpatient (CLI) | payer BC, OTHER ==
[2022-04-02 14:09] LABS: BASO % 0.5 % (0.0-1.0); EOS # 0.2 10^3/uL (0.0-0.5); EOS % 2.5 % (0.0-3.0); HEMATOCRIT 41.8 % (36.0-47.0); LYMPH % 31.2 % (24.0-44.0); MEAN CORPUSCULAR HEMOGLOBIN 31.7 pg (27.0-33.0); MEAN CORPUSCULAR HGB CONC 33.5 g/dl (32.0-36.5); MEAN CORPUSCULAR VOLUME 94.8 fl (80.0-96.0); MONO # 0.5 10^3/uL (0.0-0.8); MONO % 8.5 % (2.0-8.0); NEUTROPHILS # 3.6 10^3/uL (1.5-8.5); NEUTROPHILS % 57.1 % (36.0-66.0); PLATELET COUNT, AUTOMATED 268 10^3/uL (150-450); RED BLOOD COUNT 4.41 10^6/uL (4.00-5.40); WHITE BLOOD COUNT 6.3 10^3/uL (4.0-10.0)
[2022-04-02 16:22] LABS: ALBUMIN 3.7 GM/DL (3.2-5.2); ALT/SGPT 128 U/L (12-78); BILIRUBIN,TOTAL 0.8 MG/DL (0.2-1.0); BLOOD UREA NITROGEN 17 MG/DL (7-18); CALCIUM LEVEL 9.6 MG/DL (8.8-10.2); CARBON DIOXIDE LEVEL 28 MEQ/L (21-32); CHLORIDE LEVEL 105 MEQ/L (98-107); CHOLESTEROL LEVEL 235 MG/DL (<200); CHOLESTEROL RISK RATIO 3.507 (<5); CREATININE FOR GFR 0.97 MG/DL (0.55-1.30); FREE T4 1.09 NG/DL (0.76-1.46); GLOMERULAR FILTRATION RATE > 60.0 (>45); GLUCOSE, FASTING 89 MG/DL (70-100); HDL CHOLESTEROL 67 MG/DL (>40); LDL CHOLESTEROL 151 MG/DL (<100); NON-HDL-C 168 MG/DL; POTASSIUM SERUM 4.2 MEQ/L (3.5-5.1); SODIUM LEVEL 141 MEQ/L (136-145); TOTAL PROTEIN 7.6 GM/DL (6.4-8.2); TRIGLYCERIDES LEVEL 87 MG/DL (<150)
[2022-04-02 16:49] LABS: PTH INTACT 27.9 PG/ML (18.5-88.0)
== END ==
LOC: M PLALAB 09:34
PROVIDERS: ATTEND Physician Assistant Medical
DX: E66.3 Overweight (principal); E55.9 Vitamin D deficiency, unspecified; I10 Essential (primary) hypertension; E78.2 Mixed hyperlipidemia

== ENCOUNTER → 2022-10-01 | Outpatient (CLI) | payer BC, OTHER ==
[2022-10-01 13:42] LABS: BASO % 0.4 % (0.0-1.0); EOS # 0.1 10^3/uL (0.0-0.5); EOS % 1.8 % (0.0-3.0); HEMATOCRIT 42.9 % (36.0-47.0); HEMOGLOBIN 14.3 g/dl (12.0-15.5); LYMPH # 2.5 10^3/uL (1.5-5.0); MEAN CORPUSCULAR HEMOGLOBIN 31.8 pg (27.0-33.0); MEAN CORPUSCULAR HGB CONC 33.3 g/dl (32.0-36.5); MEAN CORPUSCULAR VOLUME 95.5 fl (80.0-96.0); MONO # 0.6 10^3/uL (0.0-0.8); MONO % 8.3 % (2.0-8.0); NEUTROPHILS % 55.4 % (36.0-66.0); PLATELET COUNT, AUTOMATED 276 10^3/uL (150-450); RED BLOOD COUNT 4.49 10^6/uL (4.00-5.40); WHITE BLOOD COUNT 7.2 10^3/uL (4.0-10.0)
[2022-10-01 13:47] LABS: ALBUMIN 3.8 G/DL (3.2-5.2); ALKALINE PHOSPHATASE 75 U/L (46-116); ALT/SGPT 142 U/L (7.0-40); AST/SGOT 76 U/L (<34); BILIRUBIN,TOTAL 0.9 MG/DL (0.3-1.2); BLOOD UREA NITROGEN 16 MG/DL (9-23); CALCIUM LEVEL 9.4 MG/DL (8.3-10.6); CARBON DIOXIDE LEVEL 28 MMOL/L (20-31); CHLORIDE LEVEL 106 MMOL/L (98-107); CREATININE FOR GFR 0.91 MG/DL (0.55-1.30); GLOMERULAR FILTRATION RATE > 60.0 (>45); GLUCOSE, FASTING 94 MG/DL (74-106); POTASSIUM SERUM 4.3 MMOL/L (3.5-5.1); SODIUM LEVEL 141 MMOL/L (136-145); TOTAL PROTEIN 7.2 G/DL (5.7-8.2)
[2022-10-01 13:48] LABS: PTH INTACT 46.8 PG/ML (18.5-88.0)
[2022-10-01 13:50] LABS: TOTAL 25(OH) VITAMIN D 45.7 NG/ML (20.0-100.0)
== END ==
LOC: M PLALAB 10:02
PROVIDERS: ATTEND Physician Assistant Medical
DX: R79.89 Other specified abnormal findings of blood chemistry (principal); I10 Essential (primary) hypertension; E55.9 Vitamin D deficiency, unspecified

== ENCOUNTER → 2022-10-08 | Outpatient (CLI) | payer BC, OTHER | LOC: M WHC 11:29 | PROVIDERS: ATTEND Physician Assistant Medical | DX: Z12.31 Encounter for screening mammogram for malignant neoplasm of breast (principal) ==

== ENCOUNTER → 2022-12-03 | Outpatient (CLI) | payer BC, OTHER | LOC: M WHC 11:00 | PROVIDERS: ATTEND Physician Assistant Medical | DX: R10.31 Right lower quadrant pain (principal) ==

== ENCOUNTER → 2023-03-04 | Outpatient (CLI) | payer BC, OTHER ==
[2023-03-04 17:24] LABS: PLATELET COUNT, AUTOMATED 278 10^3/uL (150-450)
[2023-03-04 17:41] LABS: INR 0.89; PROTHROMBIN TIME 12.2 SECONDS (12.5-14.5)
[2023-03-04 17:42] LABS: PARTIAL THROMBOPLASTIN TIME 28.3 SECONDS (24.8-34.2)
== END ==
LOC: M PLALAB 15:11
PROVIDERS: ATTEND Physician Assistant
DX: Z01.818 Encounter for other preprocedural examination (principal)

== ENCOUNTER → 2023-04-08 | Outpatient (CLI) | payer BC, OTHER ==
[2023-04-08 13:54] LABS: BASO % 0.3 % (0.0-1.0); EOS # 0.1 10^3/uL (0.0-0.5); EOS % 0.8 % (0.0-3.0); LYMPH # 2.6 10^3/uL (1.5-5.0); LYMPH % 42.6 % (24.0-44.0); MEAN CORPUSCULAR HEMOGLOBIN 31.8 pg (27.0-33.0); MEAN CORPUSCULAR HGB CONC 34.1 g/dl (32.0-36.5); MEAN CORPUSCULAR VOLUME 93.2 fl (80.0-96.0); MONO # 0.5 10^3/uL (0.0-0.8); MONO % 8.4 % (2.0-8.0); NEUTROPHILS # 2.9 10^3/uL (1.5-8.5); NEUTROPHILS % 47.6 % (36.0-66.0); PLATELET COUNT, AUTOMATED 256 10^3/uL (150-450); WHITE BLOOD COUNT 6.1 10^3/uL (4.0-10.0)
[2023-04-08 14:11] LABS: HEMOGLOBIN A1c 5.6 % (4.0-6.0)
[2023-04-08 14:20] LABS: ALBUMIN 3.8 G/DL (3.2-5.2); ALKALINE PHOSPHATASE 72 U/L (46-116); ALT/SGPT 67 U/L (7.0-40); AST/SGOT 28 U/L (<34); BILIRUBIN,TOTAL 0.9 MG/DL (0.3-1.2); BLOOD UREA NITROGEN 16 MG/DL (9-23); CALCIUM LEVEL 9.2 MG/DL (8.3-10.6); CARBON DIOXIDE LEVEL 27 MMOL/L (20-31); CHLORIDE LEVEL 108 MMOL/L (98-107); CHOLESTEROL LEVEL 219 MG/DL (<200); CREATININE FOR GFR 0.94 MG/DL (0.55-1.30); GLOMERULAR FILTRATION RATE > 60.0 (>45); GLUCOSE, FASTING 81 MG/DL (74-106); HDL CHOLESTEROL 66.3 MG/DL (>40); LDL CHOLESTEROL 137.7 MG/DL (<100); NON-HDL-C 152.7 MG/DL; POTASSIUM SERUM 4.3 MMOL/L (3.5-5.1); SODIUM LEVEL 143 MMOL/L (136-145); TOTAL PROTEIN 7.1 G/DL (5.7-8.2); TRIGLYCERIDES LEVEL 75 MG/DL (<150)
[2023-04-08 14:21] LABS: PTH INTACT 55.1 PG/ML (18.5-88.0)
[2023-04-08 14:22] LABS: TOTAL 25(OH) VITAMIN D 38.6 NG/ML (20.0-100.0)
== END ==
LOC: M PLALAB 12:22
PROVIDERS: ATTEND Physician Assistant Medical
DX: I10 Essential (primary) hypertension (principal); E78.2 Mixed hyperlipidemia; E55.9 Vitamin D deficiency, unspecified; E66.3 Overweight

== ENCOUNTER → 2023-06-24 | Outpatient (CLI) | payer BC, OTHER ==
[~2023-06-24] MED LIST changes: +ISOVUE-300 61% 100ML VIAL As Ordered ONE; +LIDOCAINE 1% MDV 20ML VIAL As Ordered ONE; +TRIAMCINOLONE ACETONIDE SUSP 40MG/ML 1ML VIAL As Ordered ONE
== END ==
LOC: M RAD 15:06
PROVIDERS: ATTEND Physician Assistant
DX: M16.11 Unilateral primary osteoarthritis, right hip (principal)
CPT/HCPCS: 20610; 77002; J3301; Q9967

== ENCOUNTER → 2023-07-29 | Outpatient (CLI) | payer BC, OTHER ==
[~2023-07-29] MED LIST changes: -ISOVUE-300 61% 100ML VIAL As Ordered ONE; -LIDOCAINE 1% MDV 20ML VIAL As Ordered ONE; -TRIAMCINOLONE ACETONIDE SUSP 40MG/ML 1ML VIAL As Ordered ONE
[2023-07-29 16:12] LABS: CPK CREATINE PHOSPHOKINASE 100 U/L (34-145)
[2023-07-29 16:34] LABS: ALKALINE PHOSPHATASE 61 U/L (46-116); ALT/SGPT 50 U/L (7.0-40); AST/SGOT 26 U/L (<34); BILIRUBIN,TOTAL 0.9 MG/DL (0.3-1.2); BLOOD UREA NITROGEN 17 MG/DL (9-23); CALCIUM LEVEL 9.1 MG/DL (8.3-10.6); CARBON DIOXIDE LEVEL 26 MMOL/L (20-31); CHLORIDE LEVEL 105 MMOL/L (98-107); CREATININE FOR GFR 0.84 MG/DL (0.55-1.30); GLOMERULAR FILTRATION RATE > 60.0 (>45); GLUCOSE, FASTING 87 MG/DL (74-106); POTASSIUM SERUM 4.3 MMOL/L (3.5-5.1); SODIUM LEVEL 140 MMOL/L (136-145); TRIGLYCERIDES LEVEL 84 MG/DL (<150)
[2023-07-29 16:35] LABS: ALBUMIN 3.6 G/DL (3.2-5.2); CHOLESTEROL LEVEL 202 MG/DL (<200); CHOLESTEROL RISK RATIO 3.07 (<5); HDL CHOLESTEROL 65.6 MG/DL (>40); LDL CHOLESTEROL 119.6 MG/DL (<100); NON-HDL-C 136.4 MG/DL; TOTAL PROTEIN 6.9 G/DL (5.7-8.2)
== END ==
LOC: M PLALAB 10:29
PROVIDERS: ATTEND Physician Assistant Medical
DX: E78.2 Mixed hyperlipidemia (principal)

== ENCOUNTER → 2023-10-09 | Outpatient (CLI) | payer BC, OTHER | LOC: M WHC 10:50 | PROVIDERS: ATTEND Physician Assistant Medical | DX: Z12.31 Encounter for screening mammogram for malignant neoplasm of breast (principal) ==

== ENCOUNTER → 2023-10-18 | Outpatient (CLI) | payer BC, OTHER | LOC: M WHC 06:57 | PROVIDERS: ATTEND Physician Assistant Medical | DX: K76.0 Fatty (change of) liver, not elsewhere classified (principal) ==

== ENCOUNTER → 2024-02-03 | Outpatient (CLI) | payer BC ==
[2024-02-03 13:55] LABS: BASO % 0.5 % (0.0-1.0); EOS # 0.1 10^3/uL (0.0-0.5); HEMATOCRIT 40.9 % (36.0-47.0); HEMOGLOBIN 13.9 g/dl (12.0-15.5); LYMPH # 2.5 10^3/uL (1.5-5.0); LYMPH % 40.3 % (24.0-44.0); MEAN CORPUSCULAR HEMOGLOBIN 32.2 pg (27.0-33.0); MEAN CORPUSCULAR VOLUME 94.7 fl (80.0-96.0); MONO # 0.5 10^3/uL (0.0-0.8); MONO % 8.6 % (2.0-8.0); NEUTROPHILS % 48.6 % (36.0-66.0); PLATELET COUNT, AUTOMATED 246 10^3/uL (150-450); RED BLOOD COUNT 4.32 10^6/uL (4.00-5.40); WHITE BLOOD COUNT 6.2 10^3/uL (4.0-10.0)
[2024-02-03 14:17] LABS: HEMOGLOBIN A1c 5.1 % (4.0-6.0)
[2024-02-03 14:25] LABS: ALBUMIN 3.8 G/DL (3.2-5.2); ALKALINE PHOSPHATASE 73 U/L (46-116); ALT/SGPT 25 U/L (7.0-40); AST/SGOT 15 U/L (<34); BLOOD UREA NITROGEN 18 MG/DL (9-23); CALCIUM LEVEL 9.6 MG/DL (8.3-10.6); CARBON DIOXIDE LEVEL 29 MMOL/L (20-31); CHLORIDE LEVEL 107 MMOL/L (98-107); CHOLESTEROL LEVEL 183 MG/DL (<200); CHOLESTEROL RISK RATIO 2.84 (<5); CREATININE FOR GFR 0.86 MG/DL (0.55-1.30); GLOMERULAR FILTRATION RATE > 60.0 (>45); GLUCOSE, FASTING 80 MG/DL (74-106); HDL CHOLESTEROL 64.4 MG/DL (>40); LDL CHOLESTEROL 96.8 MG/DL (<100); NON-HDL-C 118.6 MG/DL; POTASSIUM SERUM 4.2 MMOL/L (3.5-5.1); PTH INTACT 41.8 PG/ML (18.5-88.0); SODIUM LEVEL 142 MMOL/L (136-145); TOTAL PROTEIN 6.9 G/DL (5.7-8.2); TRIGLYCERIDES LEVEL 109 MG/DL (<150)
[2024-02-03 14:26] LABS: TOTAL 25(OH) VITAMIN D 38.1 NG/ML (20.0-100.0)
== END ==
LOC: M PLALAB 09:27
PROVIDERS: ATTEND Physician Assistant Medical
DX: E78.2 Mixed hyperlipidemia (principal); I10 Essential (primary) hypertension; E55.9 Vitamin D deficiency, unspecified; E66.3 Overweight

== ENCOUNTER → 2024-06-15 | Outpatient (CLI) | payer BC ==
[~2024-06-15] MED LIST changes: -MULT200T7 PO; +MULT200T9 PO
[2024-06-15 15:04] LABS: BASO % 0.3 % (0.0-1.0); EOS # 0.1 10^3/uL (0.0-0.5); EOS % 0.8 % (0.0-3.0); HEMATOCRIT 40.6 % (36.0-47.0); LYMPH # 2.4 10^3/uL (1.5-5.0); LYMPH % 40.2 % (24.0-44.0); MEAN CORPUSCULAR HEMOGLOBIN 32.3 pg (27.0-33.0); MEAN CORPUSCULAR HGB CONC 34.5 g/dl (32.0-36.5); MEAN CORPUSCULAR VOLUME 93.5 fl (80.0-96.0); MONO # 0.6 10^3/uL (0.0-0.8); MONO % 9.5 % (2.0-8.0); NEUTROPHILS # 2.9 10^3/uL (1.5-8.5); PLATELET COUNT, AUTOMATED 245 10^3/uL (150-450); RED BLOOD COUNT 4.34 10^6/uL (4.00-5.40)
[2024-06-15 15:09] LABS: ALBUMIN 3.8 G/DL (3.2-5.2); ALKALINE PHOSPHATASE 74 U/L (46-116); ALT/SGPT 24 U/L (7.0-40); AST/SGOT 14 U/L (<34); BILIRUBIN,TOTAL 0.8 MG/DL (0.3-1.2); BLOOD UREA NITROGEN 16 MG/DL (9-23); CALCIUM LEVEL 9.8 MG/DL (8.3-10.6); CARBON DIOXIDE LEVEL 28 MMOL/L (20-31); CHLORIDE LEVEL 111 MMOL/L (98-107); CREATININE FOR GFR 0.91 MG/DL (0.55-1.30); GLOMERULAR FILTRATION RATE > 60.0 (>45); GLUCOSE, FASTING 84 MG/DL (74-106); POTASSIUM SERUM 4.5 MMOL/L (3.5-5.1); SODIUM LEVEL 143 MMOL/L (136-145); TOTAL PROTEIN 7.3 G/DL (5.7-8.2)
== END ==
LOC: M PLALAB 12:48
PROVIDERS: ATTEND Physician Assistant Medical
DX: K76.0 Fatty (change of) liver, not elsewhere classified (principal)

== ENCOUNTER → 2024-08-12 | Outpatient (CLI) | payer BC ==
[~2024-08-12] MED LIST changes: +NYST1POW3 TOP; -NYST1POW9 TOP
[2024-08-12 13:45] LABS: BASO % 0.5 % (0.0-1.0); EOS # 0.1 10^3/uL (0.0-0.5); EOS % 1.1 % (0.0-3.0); HEMATOCRIT 40.4 % (36.0-47.0); HEMOGLOBIN 13.9 g/dl (12.0-15.5); LYMPH # 2.1 10^3/uL (1.5-5.0); LYMPH % 36.4 % (24.0-44.0); MEAN CORPUSCULAR HEMOGLOBIN 32.2 pg (27.0-33.0); MEAN CORPUSCULAR HGB CONC 34.4 g/dl (32.0-36.5); MEAN CORPUSCULAR VOLUME 93.5 fl (80.0-96.0); MONO # 0.6 10^3/uL (0.0-0.8); MONO % 9.7 % (2.0-8.0); NEUTROPHILS % 52.1 % (36.0-66.0); PLATELET COUNT, AUTOMATED 254 10^3/uL (150-450); RED BLOOD COUNT 4.32 10^6/uL (4.00-5.40); WHITE BLOOD COUNT 5.7 10^3/uL (4.0-10.0)
[2024-08-12 13:46] LABS: ALBUMIN 3.7 G/DL (3.2-5.2); ALKALINE PHOSPHATASE 69 U/L (35-104); ALT/SGPT 29 U/L (7.0-40); AST/SGOT 22 U/L (<34); BLOOD UREA NITROGEN 15 MG/DL (9-23); CALCIUM LEVEL 9.7 MG/DL (8.3-10.6); CARBON DIOXIDE LEVEL 29 MMOL/L (20-31); CHLORIDE LEVEL 107 MMOL/L (98-107); CHOLESTEROL LEVEL 206 MG/DL (<200); CHOLESTEROL RISK RATIO 3.32 (<5); FREE T4 1.18 NG/DL (0.89-1.76); GLOMERULAR FILTRATION RATE > 60.0 (>45); GLUCOSE, FASTING 92 MG/DL (74-106); HDL CHOLESTEROL 61.9 MG/DL (>40); LDL CHOLESTEROL 122.7 MG/DL (<100); NON-HDL-C 144.1 MG/DL; POTASSIUM SERUM 4.2 MMOL/L (3.5-5.1); PTH INTACT 48.6 PG/ML (18.5-88.0); SODIUM LEVEL 142 MMOL/L (136-145); THYROID STIMULATING HORMONE 1.778 uIU/ML (0.55-4.78); TOTAL 25(OH) VITAMIN D 41.2 NG/ML (20.0-100.0); TOTAL PROTEIN 7.4 G/DL (5.7-8.2); TRIGLYCERIDES LEVEL 107 MG/DL (<150)
[2024-08-12 13:50] LABS: HEMOGLOBIN A1c 5.1 % (4.0-6.0)
== END ==
LOC: M PLALAB 10:36
PROVIDERS: ATTEND Physician Assistant Medical
DX: I10 Essential (primary) hypertension (principal); K76.0 Fatty (change of) liver, not elsewhere classified; E55.9 Vitamin D deficiency, unspecified; E78.2 Mixed hyperlipidemia; E66.3 Overweight

== ENCOUNTER → 2024-10-16 | Outpatient (CLI) | payer BC | LOC: M WHC 10:01 | PROVIDERS: ATTEND Physician Assistant Medical | DX: Z12.31 Encounter for screening mammogram for malignant neoplasm of breast (principal) ==

== ENCOUNTER → 2025-05-31 | Outpatient (CLI) | payer BC | LOC: M WHC 14:01 | PROVIDERS: ATTEND Physician Assistant Medical | DX: M81.0 Age-related osteoporosis without current pathological fracture (principal); M85.89 Other specified disorders of bone density and structure, multiple sites ==